=== PATIENT | male | born 1980 | race Caucasian/White ===

== ENCOUNTER 2016-09-27 08:37 | Emergency (ER) | payer BC ==
--- NOTE | 2016-09-27 09:01 | EDM.PDOC ---
ED HPI ENT - General Chief Complaint: ENT Problem Stated Complaint: INFECTION Time Seen by Provider: 09/27/16 08:42 Source of Information: Reports: Patient History Limitations: Reports: No limitations - History of Present Illness INITIAL COMMENTS - FREE TEXT/NARRATIVE: History of present illness: [] Patient started having pain over his sinuses, bloody nasal drainage with congestion and mucus yesterday. He says he felt feverish yesterday and his girlfriend was diagnosed with strep throat (not by swab) however he does not have a sore throat. Review of systems: As per history of present illness and below otherwise all systems reviewed and negative. Past medical history: As per history of present illness and as reviewed below otherwise noncontributory. Surgical history: As per history of present illness and as reviewed below otherwise noncontributory. Social history: No reported history of drug or alcohol abuse. Family history: As per history of present illness and as reviewed below otherwise noncontributory. Physical exam: General: Well developed, well nourished in NAD HEENT: Atraumatic, normocephalic, pupils reactive, negative for conjunctival pallor or scleral icterus, mucous membranes moist, throat clear, no erythema or exudate, patient has a long uvula without edema, neck supple, nontender, trachea midline. Tenderness over maxillary sinuses to palpation Lungs: Clear to auscultation, breath sounds equal bilaterally, chest nontender. Heart: S1S2, regular, negative for clicks, rubs, or JVD. Abdomen: Soft, nondistended, nontender. Negative for masses or hepatosplenomegaly. Negative for costovertebral tenderness. Pelvis: Stable nontender. Genitourinary: Deferred. Rectal: Deferred. Extremities: Atraumatic, negative for cords or calf pain. Neurovascular unremarkable. Neuro: Awake, alert, oriented. Cranial nerves II through XII unremarkable. Cerebellum unremarkable. Motor and sensory unremarkable throughout. Exam nonfocal. Diagnostics: [] Therapeutics: [] Impression: [] Acute Sinusitis Plan: [] Z-Parish as directed followup PMD Definitive disposition and diagnosis as appropriate pending reevaluation and review of above. - Related Data Allergies/ADRs: Allergies Allergy/AdvReac Type Severity Reaction Status Date / Time Penicillins Allergy Hives Verified 09/27/16 08:47 Sulfa (Sulfonamide Allergy Hives Verified 09/27/16 08:47 Antibiotics) Home Meds: Home Meds Doxazosin [Cardura] 4 mg PO BEDTIME 02/19/16 [History] Lisinopril [Prinivil] 25 mg PO DAILY 02/19/16 [History] Azithromycin [Zithromax] 250 mg PO DAILY #6 tablet 09/27/16 [Rx] amLODIPine [Norvasc] 5 mg PO DAILY 09/27/16 [History] Past Medical History Cardiovascular History: Reports: Hypertension Gastrointestinal History: Reports: Diverticulosis - Infectious Disease History Infectious Disease History: Reports: Other (see below) Other Infectious Disease History: HSV 2 - Past Surgical History GI Surgical History: Reports: Other (see below) Other GI Surgeries/Procedures: colon resection Social & Family History - Family History Family Medical History: Noncontributory - Tobacco Use Smoking Status *Q: Former Smoker Years of Tobacco use: 10 - Recreational Drug Use Recreational Drug Use: No ED ROS ENT - Review of Systems Review Of Systems: See Below (See history of present illness) ED EXAM, ENT - Physical Exam Exam: See Below (See history of present illness) Course - Vital Signs Last Recorded V/S: Last Vital Signs Temp 36.4 C 09/27/16 08:51 Pulse 86 09/27/16 08:51 Resp 18 09/27/16 08:51 BP 160/106 H 09/27/16 08:51 Pulse Ox 95 09/27/16 08:51 Departure - Departure Time of Disposition: 08:50 Disposition: Home, Self-Care 01 Condition: good Clinical Impression: Sinusitis Qualifiers: Sinusitis location: maxillary Chronicity: acute Recurrence: recurrent Qualified Code(s): J01.01 - Acute recurrent maxillary sinusitis Prescriptions: Azithromycin [Zithromax] 250 mg PO DAILY #6 tablet Instructions: Sinusitis, Adult, [id number] Referrals: PCP,None [Primary Care Provider] - Forms: ED Department Discharge Additional Instructions: The following information is given to patients seen in the emergency department who are being discharged to home. This information is to outline your options for follow-up care. We provide all patients seen in our emergency department with a follow-up referral. The need for follow-up, as well as the timing and circumstances, are variable depending upon the specifics of your emergency department visit. If you don't have a primary care physician on staff, we will provide you with a referral. We always advise you to contact your personal physician following an emergency department visit to inform them of the circumstance of the visit and for follow-up with them and/or the need for any referrals to a consulting specialist. The emergency department will also refer you to a specialist when appropriate. This referral assures that you have the opportunity for follow-up care with a specialist. All of these measure are taken in an effort to provide you with optimal care, which includes your follow-up. Under all circumstances we always encourage you to contact your private physician who remains a resource for coordinating your care. When calling for follow-up care, please make the office aware that this follow-up is from your recent emergency room visit. If for any reason you are refused follow-up, please contact the [facility] Emergency Department at and asked to speak to the emergency department charge nurse. Mary as directed [facility] [address] [place] [phone]
[2016-09-27 09:13] VITALS: BP 137/105
== END 2016-09-27 09:12 | disposition home or self-care (01) ==
LOC: MW.ED 08:37
DX: J01.01 Acute recurrent maxillary sinusitis (principal); I10 Essential (primary) hypertension; Z98.890 Other specified postprocedural states; Z79.2 Long term (current) use of antibiotics; Z79.899 Other long term (current) drug therapy; Z88.0 Allergy status to penicillin; Z88.2 Allergy status to sulfonamides; Z87.891 Personal history of nicotine dependence
CPT/HCPCS: 99283

== ENCOUNTER 2017-08-17 02:01 | Emergency (ER) | payer BC ==
[2017-08-17] MEDS ORDERED: Albuterol/Ipratropium 3.0-0.5 MG/3 ML Neb Soln NEB ONE (02:12)
[2017-08-17] MEDS ORDERED: methylPREDNISolone Sodium Succinate 125 MG/2 ML SDV IVPUSH ONE (02:12)
--- NOTE | 2017-08-17 02:14 | EDM.PDOC ---
ED HPI GENERAL MEDICAL PROBLEM - General Chief Complaint: Respiratory Problem Stated Complaint: HARD TIME BREATHING Time Seen by Provider: 08/17/17 02:13 Source of Information: Reports: Patient - History of Present Illness INITIAL COMMENTS - FREE TEXT/NARRATIVE: HISTORY AND PHYSICAL: History of present illness: [Patient has had cough for a week he has smoking history is not smoked over the last 3 days due to cough and shortness of breath associated with the cough however he does not appear in any distress able speak in full sentences breathing nonlabored No fever nausea vomiting chills sweats Pain headache dizziness palpitation no bowel or urine symptoms ] Review of systems: As per history of present illness and below otherwise all systems reviewed and negative. Past medical history: As per history of present illness and as reviewed below otherwise noncontributory. Surgical history: As per history of present illness and as reviewed below otherwise noncontributory. Social history: No reported history of drug or alcohol abuse. Family history: As per history of present illness and as reviewed below otherwise noncontributory. Physical exam: HEENT: Atraumatic, normocephalic, pupils reactive, negative for conjunctival pallor or scleral icterus, mucous membranes moist, throat clear, neck supple, nontender, trachea midline. Lungs: Clear to auscultation, breath sounds equal bilaterally, chest nontender. Heart: S1S2, regular, negative for clicks, rubs, or JVD. Abdomen: Soft, nondistended, nontender. Negative for masses or hepatosplenomegaly. Negative for costovertebral tenderness. Pelvis: Stable nontender. Genitourinary: Deferred. Rectal: Deferred. Extremities: Atraumatic, negative for cords or calf pain. Neurovascular unremarkable. Neuro: Awake, alert, oriented. Cranial nerves II through XII unremarkable. Cerebellum unremarkable. Motor and sensory unremarkable throughout. Exam nonfocal. Diagnostics: [Influenza Chest 2 views ] Therapeutics: [Z-Parish 500 mg HFA]-patient has at home 4 times a day 7-10 days Medrol Dosepak Impression: [Acute bronchitis] Infiltrate on chest x-ray Definitive disposition and diagnosis as appropriate pending reevaluation and review of above. chest Pain Score (Numeric/FACES): 4 - Related Data Allergies Allergy/AdvReac Type Severity Reaction Status Date / Time Penicillins Allergy Hives Verified 08/17/17 02:10 Sulfa (Sulfonamide Allergy Hives Verified 08/17/17 02:10 Antibiotics) Home Meds: Home Meds Doxazosin [Cardura] 4 mg PO BEDTIME 02/19/16 [History] Lisinopril [Prinivil] 30 mg PO DAILY 02/19/16 [History] amLODIPine [Norvasc] 5 mg PO DAILY 09/27/16 [History] Past Medical History HEENT History: Reports: Sinusitis Cardiovascular History: Reports: Hypertension Gastrointestinal History: Reports: Diverticulosis Endocrine/Metabolic History: Reports: Obesity/BMI 30+ - Infectious Disease History Infectious Disease History: Reports: Other (See Below) Other Infectious Disease History: HSV 2 - Past Surgical History GI Surgical History: Reports: Other (See Below) Social & Family History - Family History Family Medical History: Noncontributory - Tobacco Use Smoking Status *Q: Former Smoker Years of Tobacco use: 10 Packs/Tins Daily: 1 - Caffeine Use Caffeine Use: Reports: Soda - Recreational Drug Use Recreational Drug Use: No ED ROS GENERAL - Review of Systems Review Of Systems: ROS reveals no pertinent complaints other than HPI. ED EXAM, GENERAL - Physical Exam Exam: See Below Course - Vital Signs Last Recorded V/S: Last Vital Signs Temp 98.4 F 08/17/17 02:01 Pulse 92 08/17/17 02:35 Resp 19 08/17/17 02:35 BP 153/95 H 08/17/17 02:35 Pulse Ox 96 08/17/17 02:35 - Orders/Labs/Meds Orders: Active Orders 24 hr Category Date Time Status RT Aerosol Therapy [RC] ASDIRECTED Care 08/17/17 02:13 Active Chest 2V [CR] Stat Exams 08/17/17 02:13 Taken Meds: Medications Discontinued Medications Generic Name Dose Route Start Last Admin Trade Name Freq PRN Reason Stop Dose Admin Albuterol/Ipratropium 3 ml 08/17/17 02:12 08/17/17 02:20 Duoneb 3.0-0.5 Mg/3 Ml NEB 08/17/17 02:13 3 ml ONETIME ONE Administration Methylprednisolone Sodium Succinate 125 mg 08/17/17 02:12 08/17/17 02:32 Solu-Medrol IVPUSH 08/17/17 02:13 125 mg ONETIME ONE Administration Departure - Departure Time of Disposition: 03:28 Disposition: Home, Self-Care 01 Condition: Good Clinical Impression: Acute bronchitis, Pulmonary infiltrate on chest x-ray - Discharge Information Forms: ED Department Discharge Additional Instructions: The following information is given to patients seen in the emergency department who are being discharged to home. This information is to outline your options for follow-up care. We provide all patients seen in our emergency department with a follow-up referral. The need for follow-up, as well as the timing and circumstances, are variable depending upon the specifics of your emergency department visit. If you don't have a primary care physician on staff, we will provide you with a referral. We always advise you to contact your personal physician following an emergency department visit to inform them of the circumstance of the visit and for follow-up with them and/or the need for any referrals to a consulting specialist. The emergency department will also refer you to a specialist when appropriate. This referral assures that you have the opportunity for follow-up care with a specialist. All of these measure are taken in an effort to provide you with optimal care, which includes your follow-up. Under all circumstances we always encourage you to contact your private physician who remains a resource for coordinating your care. When calling for follow-up care, please make the office aware that this follow-up is from your recent emergency room visit. If for any reason you are refused follow-up, please contact the [facility] emergency department at and asked to speak to the emergency department charge nurse. - My Orders Last 24 Hours: My Active Orders 08/17/17 02:13 RT Aerosol Therapy [RC] ASDIRECTED Chest 2V [CR] Stat - Assessment/Plan Last 24 Hours: My Active Orders 08/17/17 02:13 RT Aerosol Therapy [RC] ASDIRECTED Chest 2V [CR] Stat
[2017-08-17 03:47] VITALS: BP 154/95
--- NOTE | 2017-08-18 06:46 | CR ---
EXAM DATE: 08/17/17 PATIENT'S AGE: 36 Patient: CELINA GALLEGO Facility: [place], [place] Site . Site : [id number] Study: XRay Chest [id number]/[id number] 2:47:15 AM Ordering Physician: Doctor Walker Final Report: Indication: Pain, SOB, cough Technique: Chest 2 views Comparison: None Findings/Impression: Cardiovascular and mediastinum: Heart size and vasculature are normal in caliber and appearance. Mediastinum is within normal limits. Lungs and pleural spaces: Clustered right mid lung nodular opacities measuring up to 7 millimeters and multiple small left mid and lower lung nodular opacities , probably representing an atypical infectious process. Correlate clinically and followup. If the nodules do not resolve on followup imaging, correlate with CT. No pleural effusions. Bones and soft tissues: No significant findings. Dictated by Jericho Rosado MD @ 08/17/2017 3:31:52 AM Dictated by: Jericho Rosado MD @ 08/17/2017 03:31:56 (Electronic Signature) Report Signed by Proxy. [facility] HOSPITALCalista
== END 2017-08-17 03:45 | disposition home or self-care (01) ==
LOC: MW.ED 02:01
DX: J20.9 Acute bronchitis, unspecified (principal); R91.8 Other nonspecific abnormal finding of lung field; Z87.891 Personal history of nicotine dependence; I10 Essential (primary) hypertension; Z79.899 Other long term (current) drug therapy; Z88.0 Allergy status to penicillin; Z88.2 Allergy status to sulfonamides
CPT/HCPCS: 71046; 87804; 94640; 96374; 99285; J2930; 99283

== ENCOUNTER 2022-04-29 14:27 | Emergency (ER) | payer SELFPAY ==
[2022-04-29 15:17] VITALS: BP 146/104; PULSE 83
[2022-04-29] MEDS ORDERED: Sodium Chloride 0.9% 1,000 ML IV ONE (15:21)
[2022-04-29] MEDS ORDERED: Ketorolac 30 MG/ML SDV IVPUSH ONE (15:21)
[2022-04-29] MEDS ORDERED: Ondansetron 4 MG/2 ML SDV IVPUSH ONE (15:21)
[2022-04-29] MEDS ORDERED: Alum Hydro/Mag Hydro/Simeth XS 15 ML, Lidocaine 2% 5 ML PO ONE ×2 (15:21)
[2022-04-29 15:43] LABS: CARBON DIOXIDE,CO2 27.6 mmol/L (21.0-32.0); POTASSIUM,K 4.2 mmol/L (3.5-5.1)
[2022-04-29] MEDS ORDERED: Sucralfate Suspension 1 GM/10 ML Cup PO ONE (17:58)
[2022-04-29] MEDS ORDERED: Famotidine 20 MG/2 ML SDV IVPUSH ONE (17:59)
== END 2022-04-29 18:18 | disposition home or self-care (01) ==
LOC: MW.ED 14:27
DX: K29.70 Gastritis, unspecified, without bleeding (principal); N39.0 Urinary tract infection, site not specified; I10 Essential (primary) hypertension; E66.9 Obesity, unspecified; Z68.25 Body mass index [BMI] 25.0-25.9, adult; Z88.0 Allergy status to penicillin; Z88.2 Allergy status to sulfonamides; Z79.899 Other long term (current) drug therapy
CPT/HCPCS: 36415; 80053; 81001; 83690; 85025; 87086; 96361; 96374; 96375; 99284; A9270; J1885; J2405; J7030